=== PATIENT | male | born 1960 | race Caucasian/White ===

== ENCOUNTER → 2016-08-18 | Day surgery (SDC) | payer OTHER ==
[~2016-08-18] MED LIST: ALBUTEROL17 GM INH; ALLERGY RELIE15.8 ML; ANTIACID PO; ASPIRIN EC81 M1 PO; LISINOPRIL10 MG PO; PRAVASTATIN SOD10 MG PO; SINGULAIR PO; ZANTAC150 MG PO
--- NOTE | ~2016-08-18 | OR ---
Unit #: [id number] #: [id number] Patient: AKSHAT SANTOS [id number] [address] [place], [place] [address] [id number] MR#: [id number] NAME: AKSHAT SANTOS. ROOM: Date of Procedure: 08/18/2016 Admission Date: 08/18/2016 Surgeon: Moy Rich M.D. : 1960 Attending Physician: Moy Rich M.D. Primary Care Physician: Bridger Matias OPERATIVE REPORT PROCEDURES PERFORMED Colonoscopy with snare polypectomy, internal hemorrhoidal banding x3. INDICATIONS FOR PROCEDURE A 56-year-old gentleman with recurrent blood in the stool, who has been diagnosed with colon cancer over the last year and also he had over 10 polyps removed on the last colonoscopy. MEDICATIONS Monitored anesthesia. POSTOPERATIVE FINDINGS 1. Three small polyps 4 to 5 mm each in transverse colon, snared and sent for histopathology. 2. Grade 2 to 3 internal hemorrhoids, three bands were placed. 3. Rest of the exam was normal to the cecum with good prep. PLAN Repeat colonoscopy in 3 years. DESCRIPTION OF PROCEDURE The patient was explained of the procedure, risks, and benefits along with the risks and benefits of anesthesia. He was brought to the endoscopy room. Propofol anesthesia was given. Rectal exam was done, which was normal. Colonoscope was lubricated, passed up the rectum, advanced under direct vision all the way to the cecum. Cecum was identified by ileocecal valve and appendiceal orifice. I then started to pull the scope out carefully looking. Findings as described. Multiple polyps were snared. Large internal hemorrhoids were noted. At this point, I used an EGD scope with multi-shooter and I placed three bands right above the dentate line. Gently, the scope was pulled out. He tolerated it well. No major complications were seen. Dictated by... Spring Paz/dodie TD: 08/18/2016 15:27 JOB #: [id number] Unit #: [id number] #: [id number] Patient: AKSHAT SANTOS OPERATIVE REPORT Page 1 of 1 X Moy Rich MD OPERATIVE NOTE
== END | disposition home or self-care (01) ==
LOC: COPS 08:00
DX: D12.3 Benign neoplasm of transverse colon (principal); K64.1 Second degree hemorrhoids; J44.9 Chronic obstructive pulmonary disease, unspecified; E66.01 Morbid (severe) obesity due to excess calories; I10 Essential (primary) hypertension; J45.909 Unspecified asthma, uncomplicated; G47.30 Sleep apnea, unspecified; K21.9 Gastro-esophageal reflux disease without esophagitis; F17.210 Nicotine dependence, cigarettes, uncomplicated; Z68.24 Body mass index [BMI] 24.0-24.9, adult; Z85.038 Personal history of other malignant neoplasm of large intestine; Z86.010 Personal history of colon polyps; Z88.0 Allergy status to penicillin; Z79.82 Long term (current) use of aspirin; Z79.51 Long term (current) use of inhaled steroids; Z79.899 Other long term (current) drug therapy; Z98.890 Other specified postprocedural states
CPT/HCPCS: 88305; J3010